=== PATIENT | female | born 1965 | race Asian ===

== ENCOUNTER 2017-01-05 19:37 | Emergency (ER) | payer BC ==
[~2017-01-05] VITALS: Ht 157.5 cm; Wt 67.0 kg
[~2017-01-05 19:37] MED LIST: MULTIVITAMINS PO; PANT40TA3 PO
[2017-01-05 19:40] VITALS: Ht 157.5 cm; Wt 67.0 kg
[2017-01-05] MEDS ORDERED: METHYLPREDNISOLONE 125 MG INJ IM STA (19:52)
[2017-01-05] MEDS ORDERED: BEN25 PO (19:54)
[2017-01-05] MEDS ORDERED: PRED50TA PO (19:54)
--- NOTE | 2017-01-05 20:43 | ERD ---
ER Documentation Chief Complaint Chief Complaint bib self, cc: allergic reaction to bactrim ds, stopped , hives HPI This is a 51-year-old female presenting to the emergency department complaining of hives and allergic reaction to Bactrim for the past day. Patient states that she had a infected cyst or abscess and went to the urgent care and was given Bactrim. Patient states that she completed 7 days, she states that it has resolved however she developed a rash. She denies taking any medications for this. Denies any chest pain or shortness of breath ROS All systems reviewed and are negative except as per history of present illness. Medications Home Meds Active Scripts Diphenhydramine Hcl* (Benadryl*) 25 Mg Cap, 25-50 MG PO Q6H Y for ITCHING, #30 CAP Prov:BRITTNEE REDD PA-C 01/05/17 Prednisone* (Prednisone*) 50 Mg Tablet, 50 MG PO DAILY for 4 Days, TAB Prov:BRITTNEE REDD PA-C 01/05/17 Reported Medications [Multivitamins] No Conflict Check, PO 01/30/13 Pantoprazole* (Protonix*) 40 Mg Tablet.dr, 40 MG PO DAILY 01/30/13 Allergies Allergies: Coded Allergies: ibuprofen (Verified Allergy, Severe, HANDS/FEET SWELLING, 12/26/06) naproxen (Verified Allergy, Severe, HANDS/FEET SWELLING, 12/26/06) sulfamethoxazole (Verified Allergy, Unknown, 01/05/17) trimethoprim (Verified Allergy, Unknown, 01/05/17) PMhx/Soc History of Surgery: Yes (L hip excision of abscess) Anesthesia Reaction: No Hx Neurological Disorder: No Hx Respiratory Disorders: No Hx Cardiac Disorders: No Hx Psychiatric Problems: No Hx Miscellaneous Medical Probl: No Hx Alcohol Use: Yes (OCCASIONAL) Hx Substance Use: No Hx Tobacco Use: No Smoking Status: Never smoker Physical Exam Vitals Vital Signs Date Time Temp Pulse Resp B/P Pulse Ox O2 Delivery O2 Flow Rate FiO2 01/05/17 19:40 98.5 82 19 126/81 100 Physical Exam Const: WDWN Head: Atraumatic Eyes: Normal Conjunctiva ENT: Normal External Ears, Nose and Mouth. Neck: Full range of motion..~ No meningismus. Resp: Clear to auscultation bilaterally Cardio: Regular rate and rhythm, no murmurs Abd: Soft, non tender, non distended. Normal bowel sounds Skin: Urticarial rash throughout body Back: No midline or flank tenderness Ext: No cyanosis, or edema Neur: Awake and alert Psych: Normal Mood and Affect Results 24 hrs Current Medications Medications (Trade) Dose Ordered Sig/Diana Route PRN Reason Start Time Stop Time Status Last Admin Dose Admin Methylprednisolone Sodium Succinate (Solu-Medrol) 125 mg ONCE STAT IM 01/05/17 19:52 01/05/17 19:54 DC 01/05/17 20:01 Procedures/MDM This is a 51-year-old female presenting to the emergency department with hives and allergic reaction to possibly Bactrim DS. There was no evidence of anaphylaxis or cellulitis. Patient appears well and stable to be discharged home with prescription for prednisone and Benadryl. In the ED patient was given 125mg Solu-Medrol. Departure Diagnosis: Primary Impression: Allergic reaction Additional Impression: Hives Condition: Stable Patient Instructions: Allergic Reaction, Drug, Hives Additional Instructions: FOLLOW UP WITH YOUR PRIMARY CARE PHYSICIAN TOMORROW.Return to this facility if you are not improving as expected. Take all medicines as directed. Return to this facility if you are not improving as expected. BRITTNEE REDD PA-C Jan 05, 2017 20:43
== END 2017-01-05 20:11 | disposition home or self-care (01) ==
LOC: FTE 19:37
DX: L50.9 Urticaria, unspecified (principal)
CPT/HCPCS: 96372; 99284; J2930

== ENCOUNTER → 2017-02-26 | Outpatient (CLI) | payer BC ==
[~2017-02-26] MED LIST changes: +BEN25 PO; +PRED50TA PO
[2017-02-26 12:11] LABS: ADD UMIC NO; UR ASCORBIC ACID 40 mg/dL (NEGATIVE); UR BILIRUBIN (Dip) NEGATIVE (NEGATIVE); UR BLOOD (Dip) NEGATIVE (NEGATIVE); UR CLARITY CLEAR (CLEAR); UR COLOR YELLOW (YELLOW); UR GLUCOSE (Dip) NEGATIVE (NEGATIVE); UR KETONES (Dip) NEGATIVE (NEGATIVE); UR LEUKOCYTE ESTERASE (Dip) NEGATIVE Leu/ul (NEGATIVE); UR NITRITE (Dip) NEGATIVE (NEGATIVE); UR SPECIFIC GRAVITY (Dip) 1.014 (1.003-1.030); UR TOTAL PROTEIN (Dip) NEGATIVE (NEGATIVE); UR UROBILINOGEN (Dip) NEGATIVE (NEGATIVE)
[2017-02-28 13:58] LABS: TB-NIL 0.05 IU/mL
== END | disposition home or self-care (01) ==
LOC: LAB 10:57
PROVIDERS: ATTEND Internal Medicine
DX: Z11.9 Encounter for screening for infectious and parasitic diseases, unspecified (principal)
CPT/HCPCS: 81003; 86480; 86592

== ENCOUNTER 2017-05-18 19:35 | Emergency (ER) | END 2017-05-18 20:31 | disposition home or self-care (01) ==

== ENCOUNTER → 2018-12-01 | Outpatient (CLI) | payer BC ==
[~2018-12-01] MED LIST changes: +CLIN300C10 PO; +MUPI22OI2 TOP
== END | disposition home or self-care (01) ==
LOC: RAD 12:31
PROVIDERS: ATTEND Internal Medicine
DX: M47.892 Other spondylosis, cervical region (principal); M25.511 Pain in right shoulder; M54.5 Low back pain
CPT/HCPCS: 72040; 72100